=== PATIENT | female | born 1995 | race Two or more races ===

== ENCOUNTER 2024-08-30 19:26 | Emergency (ER) | payer MEDICAID, OTHER ==
[~2024-08-30] VITALS: Ht 165.1 cm; Wt 68.1 kg
[2024-08-30 19:28] VITALS: TEMP 97.9
[2024-08-30] MEDS: HYDROcodone-ACET 10/325MG TAB PO ONE (20:04)
[2024-08-30] MEDS: ONDANSETRON ODT 4 MG TAB PO ONE (20:04)
[2024-08-30 20:10] VITALS: PULSE 101; RESP 15; O2SAT 98
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
[2024-08-30 21:13] VITALS: BP 110/71; PULSE 74; RESP 20; O2SAT 100
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
[2024-08-30 22:33] LABS: Urine Protein, UAD TRACE (Negative)
[2024-08-30 22:44] LABS: Amphetamine Screen, Urine Neg (NEGATIVE); Barbiturate Scree,Urine Neg (NEGATIVE); Benzodiazephine Screen, Urine Neg (NEGATIVE); Cannabinoid Screen, Urine Neg (NEGATIVE); Cocaine Screen, Urine Neg (NEGATIVE); Opiate Scree,Urine Neg (NEGATIVE); Phencyclidine Screen, Urine Neg (NEGATIVE)
[2024-08-30] MEDS ORDERED: HYDR-4902 PO (23:01)
[2024-08-30] MEDS ORDERED: IBUP-1454 PO (23:01)
--- NOTE | 2024-08-31 07:25 | ECG ---
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
== END 2024-08-30 23:10 | disposition home or self-care (01) ==
LOC: ER 19:26 → EDBD 19:26 → ER 23:10
DX: S20.219A Contusion of unspecified front wall of thorax, initial encounter (principal); Z88.0 Allergy status to penicillin; Z79.899 Other long term (current) drug therapy; V89.2XXA Person injured in unspecified motor-vehicle accident, traffic, initial encounter; Y93.I9 Activity, other involving external motion; Y92.488 Other paved roadways as the place of occurrence of the external cause; Y99.8 Other external cause status
CPT/HCPCS: 71045; 80307; 81001; 93005; 99285; Q0162